=== PATIENT | female | born 1950 | race Caucasian/White ===

== ENCOUNTER 2018-03-25 14:41 | Inpatient (IN) | payer OTHER ==
[~2018-03-25] VITALS: Ht 154.9 cm; Wt 46.3 kg
[~2018-03-25 14:41] MED LIST: ASPIR-TRIN325 M1 PO; Aspirin PO; B COMPLEX-VITA1 EACH PO; BAYER ASPIRIN1 EACH; Cipro PO; Diflucan PO; ESGIC 50-325-41 EACH PO; LIPITOR40 MG PO; LOPRESSOR25 MG PO; LOPRESSOR50 MG PO; LOTREL 5-40 MG1 EACH PO; LOTREL 5/201 CAPSULE PO; Lipitor PO; Lotrel 5/40 PO; MULTIVITAMIN1 EAC2 PO; Mycostatin PO; NITROGLYCERIN1 EAC1; Nitrostat,NitroQuick SL; PLAVIX75 MG PO; Percocet 5/325,Endoc PO; SIMVASTATIN40 MG PO; Theragran PO; Tylenol Regular Stre PO; Ultram PO
[2018-03-25 15:06] LABS: APPEARANCE CLEAR ((CLEAR)); BILIRUBIN NEGATIVE; BLOOD NEGATIVE; COLOR YELLOW ((YELLOW)); GLUCOSE (STRIP) NEGATIVE; KETONES NEGATIVE; LEUKOCYTES TRACE; NITRITE NEGATIVE; PROTEIN (STRIP) NEGATIVE; SPECIFIC GRAVITY 1.019 (1.000-1.030); UROBILINOGEN 0.2 MG/DL (0.2-1.0)
[2018-03-25 15:07] LABS: HEMOGLOBIN 14.7 G/DL (11.9-15.5); MCH 32.5 PG (29.0-34.0); MCV 92.9 FL (83-99); PLATELET COUNT 256 K/uL (156-360); RBC DIS.WIDTH-CV 12.3 % (11.8-14.6); RBC DIS.WIDTH-SD 42.1 % (39-53); RED BLOOD COUNT 4.52 M/uL (3.80-5.20); WHITE BLOOD COUNT 13.2 K/uL (4.1-10.2)
[2018-03-25 15:15] LABS: ALBUMIN 4.4 g/dL (3.2-4.8)
[2018-03-25 15:16] LABS: CHLORIDE 108 mEq/L (99-109); POTASSIUM 3.7 mEq/L (3.7-5.4); SODIUM 141 mEq/L (136-147)
[2018-03-25 15:18] LABS: GLUCOSE 193 mg/dL (70-99)
[2018-03-25 15:21] LABS: ALKALINE PHOSPHATASE 128 IU/L (3-129)
[2018-03-25 15:22] LABS: CREATININE 0.9 mg/dL (0.6-1.3); GFR ESTIMATE (CALCULATED) > 59 mL/min/
[2018-03-25 15:23] LABS: AST (GOT) 20 IU/L (2-34); UREA NITROGEN (BUN) 20 mg/dL (9-23)
[2018-03-25 15:24] LABS: ALT (GPT) 18 IU/L (3-49)
[2018-03-25 15:25] LABS: LIPASE 20 U/L (1.0-51.0)
[2018-03-25 15:28] LABS: BACTERIA RARE /HPF; EPITHELIAL CELLS RARE /HPF; HYALINE CASTS 0-5 /LPF; MUCUS TRACE /LPF; RED BLOOD CELLS 0-5 /HPF (0-5); WHITE BLOOD CELLS 0-5 /HPF (0-5)
[2018-03-25 15:30] LABS: TROP-I INTERPRETATION NEGATIVE; TROPONIN-I < 0.01 ng/mL (0.0-0.30)
[2018-03-25] MEDS ORDERED: LITE COAT ASPI325 M1 PO (17:18)
[2018-03-25] MEDS ORDERED: TOPROL XL50 MG PO (17:18)
[2018-03-25] MEDS ORDERED: NITROSTAT0.4 MG SL (17:19)
[2018-03-25] MEDS ORDERED: GLUCOPHAGE XR,500 MG PO (17:19)
[2018-03-25] MEDS ORDERED: LIPITOR80 MG PO (17:19)
[2018-03-25] MEDS ORDERED: ADVIL200 MG PO (17:20)
[2018-03-25 20:47] LABS: C-REACTIVE PROTEIN 63.3 MG/L (0-10)
[2018-03-25 22:26] VITALS: BP 136/79
[2018-03-26 03:51] VITALS: BP 114/60
[2018-03-26 06:22] LABS: CHLORIDE 108 MEQ/L (99-109); CREATININE 0.7 MG/DL (0.6-1.3); GFR ESTIMATE (CALCULATED) > 59 mL/min/; GLUCOSE 167 mg/dL (70-99); POTASSIUM 3.8 MEQ/L (3.7-5.4); SODIUM 138 MEQ/L (136-147); UREA NITROGEN (BUN) 13 mg/dL (9-23)
[2018-03-26 06:27] LABS: BASOPHIL (%) 0.2 % (0-1); EOSINOPHIL (%) 0 % (0-5); HEMATOCRIT 37.9 % (36.0-46.0); IMMATURE GRANULOCYTE (%) 0.7 % (0.0-0.7); LYMPHOCYTE (%) 6.4 % (15-42); LYMPHOCYTE COUNT 1.1 K/uL (1.0-2.8); MCH 32.1 PG (29.0-34.0); MCHC 33.5 G/DL (30.0-36.0); MCV 95.7 FL (83-99); MONOCYTE (%) 7.7 % (3-12); MONOCYTE COUNT 1.3 K/uL (0-0.8); NEUTROPHIL COUNT 14.6 K/uL (1.8-6.4); PLATELET COUNT 215 K/uL (156-360); RBC DIS.WIDTH-CV 12.4 % (11.8-14.6); RBC DIS.WIDTH-SD 43.4 % (39-53); RED BLOOD COUNT 3.96 M/uL (3.80-5.20); WHITE BLOOD COUNT 17.1 K/uL (4.1-10.2)
[2018-03-26 06:31] LABS: HEMOGLOBIN 12.7 G/DL (11.9-15.5)
[2018-03-26 07:23] VITALS: BP 117/62
[2018-03-26 16:00] VITALS: BP 119/70
[2018-03-26 19:00] VITALS: BP 120/67
[2018-03-27] VITALS (7 sets, daily range): BP systolic 100–162; BP diastolic 6–72
[2018-03-27 05:25] LABS: HEMATOCRIT 37.3 % (36.0-46.0); HEMOGLOBIN 12.4 G/DL (11.9-15.5); MCH 31.9 PG (29.0-34.0); MCHC 33.2 G/DL (30.0-36.0); MCV 95.9 FL (83-99); PLATELET COUNT 203 K/uL (156-360); RBC DIS.WIDTH-CV 12.7 % (11.8-14.6); RBC DIS.WIDTH-SD 44.3 % (39-53); RED BLOOD COUNT 3.89 M/uL (3.80-5.20); WHITE BLOOD COUNT 16.8 K/uL (4.1-10.2)
[2018-03-27 05:51] LABS: CHLORIDE 107 MEQ/L (99-109); CREATININE 0.7 MG/DL (0.6-1.3); GFR ESTIMATE (CALCULATED) > 59 mL/min/; GLUCOSE 138 mg/dL (70-99); POTASSIUM 3.6 MEQ/L (3.7-5.4); SODIUM 139 MEQ/L (136-147); UREA NITROGEN (BUN) 15 mg/dL (9-23)
[2018-03-28 06:18] VITALS: BP 154/84
[2018-03-28 09:30] VITALS: BP 129/76
[2018-03-28 11:42] LABS: HEMATOCRIT 35.6 % (36.0-46.0); MCH 31.8 PG (29.0-34.0); MCHC 33.7 G/DL (30.0-36.0); MCV 94.4 FL (83-99); PLATELET COUNT 235 K/uL (156-360); RBC DIS.WIDTH-CV 12.8 % (11.8-14.6); RBC DIS.WIDTH-SD 44.3 % (39-53); RED BLOOD COUNT 3.77 M/uL (3.80-5.20); WHITE BLOOD COUNT 14.3 K/uL (4.1-10.2)
[2018-03-28 12:07] LABS: ALBUMIN 3.1 G/DL (3.2-4.8); ALKALINE PHOSPHATASE 88 IU/L (3-129); ALT (GPT) 7 IU/L (3-49); AST (GOT) 13 IU/L (2-34); CHLORIDE 110 MEQ/L (99-109); CREATININE 0.7 MG/DL (0.6-1.3); GFR ESTIMATE (CALCULATED) > 59 mL/min/; GLUCOSE 131 mg/dL (70-99); POTASSIUM 4.1 MEQ/L (3.7-5.4); SODIUM 141 MEQ/L (136-147); TOTAL BILIRUBIN 0.8 MG/DL (0.0-1.0); TOTAL PROTEIN 6.2 G/DL (6.4-8.3); UREA NITROGEN (BUN) 12 mg/dL (9-23)
[2018-03-28 12:20] VITALS: BP 134/71
[2018-03-28 16:17] VITALS: BP 151/61
[2018-03-28 19:35] VITALS: BP 147/76
[2018-03-29 00:01] VITALS: BP 144/89
[2018-03-29 05:08] VITALS: BP 129/68
[2018-03-29 05:48] LABS: BASOPHIL (%) 0.4 % (0-1); BASOPHIL COUNT 0.1 K/uL (0-0.1); EOSINOPHIL (%) 1.2 % (0-5); EOSINOPHIL COUNT 0.1 K/uL (0-0.3); HEMATOCRIT 35.2 % (36.0-46.0); HEMOGLOBIN 11.9 G/DL (11.9-15.5); IMMATURE GRANULOCYTE (%) 0.4 % (0.0-0.7); LYMPHOCYTE (%) 9.3 % (15-42); LYMPHOCYTE COUNT 1.1 K/uL (1.0-2.8); MCH 31.5 PG (29.0-34.0); MCHC 33.8 G/DL (30.0-36.0); MCV 93.1 FL (83-99); MONOCYTE (%) 12.2 % (3-12); MONOCYTE COUNT 1.4 K/uL (0-0.8); NEUTROPHIL (%) 76.5 % (45-76); NEUTROPHIL COUNT 8.7 K/uL (1.8-6.4); PLATELET COUNT 248 K/uL (156-360); RBC DIS.WIDTH-CV 12.5 % (11.8-14.6); RBC DIS.WIDTH-SD 43.1 % (39-53); RED BLOOD COUNT 3.78 M/uL (3.80-5.20); WHITE BLOOD COUNT 11.3 K/uL (4.1-10.2)
[2018-03-29 06:16] LABS: CHLORIDE 109 MEQ/L (99-109); CREATININE 0.6 MG/DL (0.6-1.3); GFR ESTIMATE (CALCULATED) > 59 mL/min/; GLUCOSE 158 mg/dL (70-99); POTASSIUM 3.4 MEQ/L (3.7-5.4); SODIUM 142 MEQ/L (136-147); UREA NITROGEN (BUN) 9 mg/dL (9-23)
[2018-03-29 07:36] VITALS: BP 135/83
[2018-03-29 09:03] LABS: MAGNESIUM 1.7 mg/dl (1.3-2.7)
[2018-03-29 12:45] VITALS: BP 133/77
[2018-03-29 16:08] VITALS: BP 142/90
[2018-03-29 19:29] VITALS: BP 144/84
[2018-03-30] VITALS (7 sets, daily range): BP systolic 109–153; BP diastolic 58–93
[2018-03-30 04:21] LABS: BASOPHIL (%) 0.5 % (0-1); BASOPHIL COUNT 0.1 K/uL (0-0.1); EOSINOPHIL (%) 2.1 % (0-5); EOSINOPHIL COUNT 0.2 K/uL (0-0.3); HEMATOCRIT 32.5 % (36.0-46.0); HEMOGLOBIN 11.7 G/DL (11.9-15.5); IMMATURE GRANULOCYTE (%) 0.4 % (0.0-0.7); LYMPHOCYTE (%) 18.8 % (15-42); LYMPHOCYTE COUNT 1.7 K/uL (1.0-2.8); MCH 32.7 PG (29.0-34.0); MCV 90.8 FL (83-99); MONOCYTE (%) 13.8 % (3-12); MONOCYTE COUNT 1.3 K/uL (0-0.8); NEUTROPHIL (%) 64.4 % (45-76); NEUTROPHIL COUNT 5.9 K/uL (1.8-6.4); PLATELET COUNT 229 K/uL (156-360); RBC DIS.WIDTH-CV 12.1 % (11.8-14.6); RBC DIS.WIDTH-SD 40.1 % (39-53); RED BLOOD COUNT 3.58 M/uL (3.80-5.20); WHITE BLOOD COUNT 9.2 K/uL (4.1-10.2)
[2018-03-30 04:32] LABS: CHLORIDE 107 mEq/L (99-109); POTASSIUM 3.2 mEq/L (3.7-5.4)
[2018-03-30 04:33] LABS: SODIUM 144 mEq/L (136-147)
[2018-03-30 04:35] LABS: GLUCOSE 134 mg/dL (70-99)
[2018-03-30 04:38] LABS: CREATININE 0.7 mg/dL (0.6-1.3); GFR ESTIMATE (CALCULATED) > 59 mL/min/; TOTAL BILIRUBIN 0.7 mg/dL (0.0-1.0); TOTAL PROTEIN 5.3 g/dL (6.4-8.3)
[2018-03-30 04:40] LABS: AST (GOT) 21 IU/L (2-34); UREA NITROGEN (BUN) 7 mg/dL (9-23)
[2018-03-30 04:41] LABS: ALT (GPT) 9 IU/L (3-49)
[2018-03-30 04:50] LABS: ALKALINE PHOSPHATASE 82 IU/L (3-129)
[2018-03-31] VITALS (7 sets, daily range): BP systolic 120–147; BP diastolic 62–81
[2018-03-31 05:13] LABS: CHLORIDE 107 mEq/L (99-109); POTASSIUM 2.9 mEq/L (3.7-5.4); SODIUM 143 mEq/L (136-147)
[2018-03-31 05:14] LABS: GLUCOSE 146 mg/dL (70-99)
[2018-03-31 05:18] LABS: CREATININE 0.7 mg/dL (0.6-1.3); GFR ESTIMATE (CALCULATED) > 59 mL/min/
[2018-03-31 05:19] LABS: UREA NITROGEN (BUN) 6 mg/dL (9-23)
[2018-03-31 05:24] LABS: HEMATOCRIT 34.3 % (36.0-46.0); HEMOGLOBIN 12.4 G/DL (11.9-15.5); MCH 32.8 PG (29.0-34.0); MCHC 36.2 G/DL (30.0-36.0); MCV 90.7 FL (83-99); PLATELET COUNT 267 K/uL (156-360); RBC DIS.WIDTH-CV 12.2 % (11.8-14.6); RBC DIS.WIDTH-SD 40.6 % (39-53); RED BLOOD COUNT 3.78 M/uL (3.80-5.20); WHITE BLOOD COUNT 10.3 K/uL (4.1-10.2)
[2018-04-01 07:30] VITALS: BP 135/83
[2018-04-01] MEDS ORDERED: CIPROFLOXACIN500 M1 PO (08:23)
[2018-04-01] MEDS ORDERED: METRONIDAZOLE500 MG PO (08:23)
== END 2018-04-01 11:40 | disposition home or self-care (01) | DRG 392 ==
LOC: EME 14:41 → EDOF 19:11 → 4SOUTH 19:11 → EDOF 19:11 → ENRESERV 19:27 → 4SOUTH 21:51
PROVIDERS: Hospitalist; Nurse Practitioner Family
DX: K57.20 Diverticulitis of large intestine with perforation and abscess without bleeding (principal); K56.7 Ileus, unspecified; E11.9 Type 2 diabetes mellitus without complications; E87.6 Hypokalemia; I10 Essential (primary) hypertension; E78.5 Hyperlipidemia, unspecified; I25.10 Atherosclerotic heart disease of native coronary artery without angina pectoris; I25.2 Old myocardial infarction; G50.0 Trigeminal neuralgia; Z86.73 Personal history of transient ischemic attack (TIA), and cerebral infarction without residual deficits; Z95.5 Presence of coronary angioplasty implant and graft; Z96.653 Presence of artificial knee joint, bilateral; Z90.710 Acquired absence of both cervix and uterus; Z79.82 Long term (current) use of aspirin; Z79.84 Long term (current) use of oral hypoglycemic drugs
CPT/HCPCS: 71275; 74018; 74174; 74176; 80048; 80053; 81003; 82948; 83605; 83690; 83735; 84132 91; 84484; 85025; 85027; 86140; 87493; 93005; 94760; 94799; 99281; 99285; C9113; G0378; J0500; J0744; J1170; J1644; J1815; J2270; J2405; J3010; J3480; J7030; S0030